=== PATIENT | female | born 1940 | race Caucasian/White ===

== ENCOUNTER 2018-08-12 14:40 | Inpatient (IN) | payer MEDICARE ==
[~2018-08-12] VITALS: Ht 160 cm; Wt 99.8 kg
--- NOTE | 2018-08-12 16:43 | Diagnostic Imaging Report ---
EXAM: CHEST SINGLE (NOT PORTABLE) DATE: 08/12/2018 Time stamp on exam: 2:44 PM INDICATION: Status post fall COMPARISON: None FINDINGS: LINES/TUBES: None LUNGS: No consolidations or edema. PLEURA: No effusions or pneumothorax. HEART AND MEDIASTINUM: Normal size and contour. BONES AND SOFT TISSUES: No acute findings. IMPRESSION: No acute thoracic abnormality. Signed by: Dr. Bernardo Vitale DO on 08/12/2018 4:40 PM
--- NOTE | 2018-08-12 17:07 | Diagnostic Imaging Report ---
Exam: AP pelvis History: Status post fall Comparison: None available Findings: The bones are osteopenic. There is bilateral hip joint space narrowing. Sclerosis of the right femoral head is probably degenerative in nature. No fracture or dislocation is identified. Evidence of prior surgery involving L5 and S1 is present. Impression: No acute bony abnormality. Signed by: Dr. Bernardo Vitale DO on 08/12/2018 5:03 PM
[2018-08-12 17:43] LABS: BASOPHILS % 0.5 % (0.0-1.0); EOSINOPHILS # (AUTO) 0.4 (0.0-0.4); EOSINOPHILS % 6.1 % (0.0-6.0); HEMATOCRIT 34.2 % (34.2-44.1); HEMOGLOBIN 11.1 g/dL (12.0-16.0); LYMPHOCYTES # (AUTO) 1.4 (1.0-3.2); LYMPHOCYTES % 21.5 % (18.0-39.1); MEAN CORPUSCULAR HEMOGLOBIN 31.4 pg (28-32); MEAN CORPUSCULAR HGB CONC 32.5 g/dL (31-35); MEAN CORPUSCULAR VOLUME 96.6 fL (81-99); MONOCYTES # (AUTO) 0.8 (0.2-0.8); MONOCYTES % 11.9 % (4.4-11.3); NEUTROPHILS # (AUTO) 3.8 (2.1-6.9); NEUTROPHILS % 59.7 % (38.7-80.0); PLATELET COUNT 182 x10e3/uL (140-360); RED BLOOD COUNT 3.54 x10e6/uL (3.6-5.1); RED CELL DISTRIBUTION WIDTH 12.1 % (11.7-14.4)
[2018-08-12 17:44] LABS: CALCIUM IONIZED 1.3 mmol/L (1.09-1.30)
[2018-08-12 17:49] LABS: INR 0.99; PROTHROMBIN TIME 13.6 seconds (11.9-14.5)
[2018-08-12 17:50] LABS: PARTIAL THROMBOPLASTIN TIME 26.9 seconds (23.8-35.5)
[2018-08-12 17:55] LABS: BILIRUBIN,URINE NEGATIVE (NEGATIVE); CLARITY,URINE SL CLOUDY (CLEAR); COLOR,URINE YELLOW (YELLOW); KETONES,URINE NEGATIVE (NEGATIVE); LEUKOCYTE ESTERASE ,URINE SMALL (NEGATIVE); NITRITE,URINE NEGATIVE (NEGATIVE); PROTEIN,URINE DIPSTICK TRACE (NEGATIVE); URINE UROBILINOGEN 0.2 mg/dL (0.2 - 1)
[2018-08-12 17:58] LABS: ALANINE AMINOTRANSFERASE 20 IU/L (0-55); ALBUMIN 4.1 g/dL (3.5-5.0); ALBUMIN/GLOBULIN RATIO 1.8 (0.8-2.0); ALKALINE PHOSPHATASE 79 IU/L (40-150); ANION GAP 14.9 mmol/L (8-16); BLOOD UREA NITROGEN 27 mg/dL (7-26); BUN/CREATININE RATIO 19 (6-25); CALCIUM 9.8 mg/dL (8.4-10.2); CARBON DIOXIDE 28 mmol/L (22-29); CHLORIDE 102 mmol/L (98-107); CREATINE KINASE 178 IU/L (29-168); CREATININE, SERUM 1.41 mg/dL (0.57-1.11); EST GLOMERULAR FILTRATION RATE 36 ML/MIN (60-); GLUCOSE 93 mg/dL (74-118); POTASSIUM 3.9 mmol/L (3.5-5.1); SODIUM 141 mmol/L (136-145)
--- NOTE | 2018-08-12 18:01 | Diagnostic Imaging Report ---
History:Patient fell last night out of bed, confused Comparison studies:None Technique: Axial images were obtained from the skull base to the vertex. Coronal and sagittal images reconstructed from the axial data. Intravenous contrast: None Dose modulation, iterative reconstruction, and/or weight based adjustment of the mA/kV was utilized to reduce the radiation dose to as low as reasonably achievable. Findings: Scalp/skull: No abnormalities. Extra-axial spaces: No masses. No fluid collections. Brain sulci: Moderately prominent sylvian fissures and frontal sulci. Ventricles: Mild compensatory dilatation. No hydrocephalus. Parenchyma: Scattered small hypodensities in the supratentorial white matter are small vessel ischemic changes. No masses, hemorrhage, acute or chronic cortical vascular insults. Sellar/suprasellar region: No abnormalities. Craniocervical junction: Patent foramen magnum. No Chiari one malformation. Incidental findings: Atherosclerotic calcifications in the carotid siphons . Impression: No acute intracranial abnormalities. Small left frontal scalp hematoma Chronic findings: 1. Moderate frontal and temporal volume loss. 2. Mild supratentorial white matter small vessel ischemic changes. Signed by: DR Damir Velez M.D. on 08/12/2018 5:58 PM
--- NOTE | 2018-08-12 18:07 | Diagnostic Imaging Report ---
History: Fell last night out of bed, neck pain. Comparison studies: None Technique: Axial images were obtained through the cervical region.. Coronal and sagittal images reconstructed from the axial data.. Intravenous contrast: None Dose modulation, iterative reconstruction, and/or weight based adjustment of the mA/kV was utilized to reduce the radiation dose to as low as reasonably achievable. Findings: Fractures: No acute fracture. Well ossified bone fragment posterior to C7 spinous process. Calcification of the ligamentum nuclei. Soft tissues: No gross abnormalities. Atlantoaxial articulation: No acute abnormality. Degenerative changes. Alignment: Bowel straightening. Mild grade 1 anterolisthesis of C4 over C5, C5 over C6 and C6 over C7. No scoliosis. Cervicomedullary junction: No abnormalities. The foramen magnum is patent. Vertebrae: No infection or neoplasm. Degenerative changes: Obliterated C2-3 and C4-5 intervertebral space. At C3-4, diffuse disc osteophyte complex, bilateral uncinate process hypertrophy and facet hypertrophy resulting in mild canal stenosis and mild bilateral foraminal narrowing more prominent on the left. At C4-5 diffuse disc osteophyte complex, bilateral uncinate process and facet hypertrophy more prominent on the left results in mild canal stenosis, mild right and moderate left foraminal narrowing. At C5-6, bilateral uncinate process and facet hypertrophy result in moderate right and mild left foraminal narrowing without significant canal stenosis.. IMPRESSION: 1. No acute cervical spine abnormalities. Degenerative changes as described above. 2. Cannot exclude ligament, spinal cord and or vascular abnormalities on the basis of this examination. Signed by: DR Damir Velez M.D. on 08/12/2018 6:04 PM
[2018-08-12 18:08] LABS: AMORPHOUS SEDIMENT,URINE MODERATE (FEW); BACTERIA,URINE MODERATE /HPF; RBC,URINE 0-5 /HPF (0-5)
[2018-08-12 18:16] LABS: FREE THYROXINE INDEX 3.8795 (1.4-3.8); THYROID STIMULATING HORMONE 0.084 uIU/mL (0.350-4.940)
[2018-08-12] MEDS: MEROPENEM 1GM 100 ML IV SCH (18:37)
[2018-08-12] MEDS ORDERED: SODIUM CHLORIDE 0.9% 1000ML 1,000 ML IV ONE (18:45)
[2018-08-12] MEDS ORDERED: ONDANSETRON HCL INJ 2MG/ML 2ML 2 MG/ML VIAL IV PRN (18:45)
[2018-08-12] MEDS ORDERED: DEXTROSE 50% SYRINGE 50 ML IV PRN (18:45)
[2018-08-12] MEDS ORDERED: WELLBUTRIN SR150 MG PO (18:55)
[2018-08-12] MEDS ORDERED: CITALOPRAM HBR20 MG PO (18:55)
[2018-08-12] MEDS ORDERED: TUMS300 MG PO (18:55)
[2018-08-12] MEDS ORDERED: PANTOPRAZOLE SO40 MG PO (18:55)
[2018-08-12] MEDS ORDERED: ATORVASTATIN CA20 MG PO (18:55)
[2018-08-12] MEDS ORDERED: LOSARTAN POTASS25 MG PO (18:55)
[2018-08-12] MEDS ORDERED: QUESTRAN PACKET4 GM PO (18:55)
[2018-08-12] MEDS ORDERED: DETROL LA4 MG PO (18:55)
[2018-08-12] MEDS ORDERED: GABAPENTIN300 MG PO (18:55)
[2018-08-12] MEDS ORDERED: NYSTATIN15 GM TP (18:55)
[2018-08-12] MEDS ORDERED: CALCITRIOL0.25 MCG PO (18:55)
[2018-08-12] MEDS ORDERED: LEVOTHYROXINE100 MC1 IV (18:55)
--- OUTSIDE RECORDS SUMMARY | 2018-08-12 18:59 | XMS REPORT ---
[facility] Address Unknown Phone Unavailable Care Team Providers Care Clinical Provider Trainer Name Role Phone Jacky EUCEDA Unavailable Unavailable Problems This patient has no known problems. Allergies, Adverse Reactions, Alerts This patient has no known allergies or adverse reactions. Medications This patient has no known medications. Results Test Description Test Time Test Comments Text Results Atomic Results Result Comments CT CERVICAL SPINE WO 2018-08-12 17:58:00 [place] [address] Patient Name: HUNTER BACK MR #: [id number] : 1940 Age/Sex: 78/F Req #: [id number] Adm Physician: Ordered by: AALIYAH EUCEDA MD Report #: [id number] Location: ER Room/Bed: Procedure: [id number] CT/CT CERVICAL SPINE WO Exam Date: 08/12/18 Exam Time: 1540 REPORT STATUS: Signed History: Fell last night out of bed, neck pain. Com parison studies: None Technique: Axial images were obtained through the cervical region.. Coronal and sagittal images reconstructed from the axial data.. Intravenous contrast: None Dose modulation, iterative reconstruction, and/or weight based adjustment of the mA/kV was utilized to reduce the radiation dose to as low as reasonably achievable. Findings: Fractures: No acute fracture. Well ossified bone fragment posterior to C7 spinous process. Calcification of the ligamentum nuclei. Soft tissues: No gross abnormalities. Atlantoaxial articulation: No acute abnormality. Degenerative changes. Alignment: Bowel straightening. Mild grade 1 anterolisthesis of C4 over C5, C5 over C6 and C6 over C7. No scoliosis. Cervicomedullary junction: No abnormalities. The foramen magnum is patent. Vertebrae: No infection or neoplasm. Degenerative changes: Obliterated C2-3 and C4-5 intervertebral space. At C3-4, diffuse disc osteophyte complex, bilateral uncinate process hypertrophy and facet hypertrophy resulting in mild canal stenosis and mild bilateral foraminal narrowing more prominent on the left. At C4-5 diffuse disc osteophyte complex, bilateral uncinate process and facet hypertrophy more prominent on the left results in mild canal stenosis, mild right and moderate left foraminal narrowing. At C5-6, bilateral uncinate process and facet hypertrophy result in moderate right and mild left foraminal narrowing without significant canal stenosis.. IMPRESSION: 1. No acute cervical spine abnormalities. Degenerative changes as described above. 2. Cannot exclude ligament, spinal cord and or vascular abnormalities on the basis of this examination. Signed by: DR Damir Velez M.D. on 08/12/2018 6:04 PM Dictated By: DAMIR PICKETT MD 03 Transcribed By: LUCIO on 08/12/181803 COPY TO: AALIYAH EUCEDA MD CT BRAIN WO 2018-08-12 17:53:00 [place] [address] Patient Name: HUNTER BACK MR #: [id number] : 1940 Age/Sex: 78/F Req #: [id number] Adm Physician: Ordered by: AALIYAH EUCEDA MD Report #: [id number] Location: Room/Bed: Procedure: [id number] CT/CT BRAIN WO Exam Date: 08/12/18 Exam Time: 1540 REPORT STATUS: Signed History:Patient fell last night out of bed, confused Compari son studies:None Technique: Axial images were obtained from the skull base to the vertex. Coronal and sagittal images reconstructed from the axial data. Intravenous contrast: None Dose modulation, iterative reconstruction, and/or weight based adjustment of the mA/kV was utilized to reduce the radiation dose to as low as reasonably achievable. Findings: Scalp/skull: No abnormalities. Extra-axial spaces: No masses. No fluid collections. Brain sulci: Moderately prominent sylvian fissures and frontal sulci. Ventricles: Mild compensatory dilatation. No hydrocephalus. Parenchyma: Scattered small hypodensities in the supratentorial white matter are small vessel ischemic changes. No masses, hemorrhage, acute or chronic cortical vascular insults. Sellar/suprasellar region: No abnormalities. Craniocervical junction: Patent foramen magnum. No Chiari one malformation. Incidental findings: Atherosclerotic calcifications in the carotid siphons . Impression: No acute intracranial abnormalities. Small left frontal scalp hematoma Chronic findings: 1. Moderate frontal and temporal volume loss. 2. Mild supratentorial white matter small vessel ischemic changes. Signed by: DR Damir Velez M.D. on 08/12/2018 5:58 PM Dictated By: DAMIR PICKETT MD 57 Transcribed By: LUCIO on 08/12/181757 COPY TO: AALIYAH EUCEDA MD PELVIS AP 1-2 VIEWS 2018-08-12 17:02:00 [place] [address] Patient Name: HUNTER BACK MR #: [id number] : 1940 Age/Sex: 78/F Req #: [id number] Adm Physician: Ordered by: AALIYAH EUCEDA MD Report #: [id number] Location: ER Room/Bed: Procedure: [id number] DX/PELVIS AP 1-2 VIEWS Exam Date: 08/12/18 Exam Time: 1550 REPORT STATUS: Signed Exam: AP pelvis History: Status post fall Co mparison: None available Findings: The bones are osteopenic. There is bilateral hip joint space narrowing. Sclerosis of the right femoral head is probably degenerative in nature. No fracture or dislocation is identified. Evidence of prior surgery involving L5 and S1 is present. Impression: No acute bony abnormality. Signed by: Dr. Denise Vitale DO on 08/12/2018 5:03 PM Dictated By: DENISE VITALE DO 02 Transcribed By: LUCIO on 08/12/181702 COPY TO: AALIYAH EUCEDA MD CHEST SINGLE (NOT PORTABLE) 2018-08-12 16:38:00 [place] [address] Patient Name: HUNTER ESCOBEDO MR #: [id number] : 1940 Age/Sex: 78/F Req #: [id number] Adm Physician: Ordered by: AALIYAH EUCEDA MD Report #: [id number] Location: ER Room/Bed: Procedure: [id number] DX/CHEST SINGLE (NOT PORTABLE) Exam Date: 08/12/18 Exam Time: 1550 REPORT STATUS: Signed EXAM: CHEST SINGLE (NOT PORTABLE) DATE: 08/12/2018 Time stamp on exam: 2:44 PM INDICATION: Status post fall COMPARISON: None FINDINGS: LINES/TUBES: None LUNGS: No consolidations or edema. PLEURA: No effusions or pneumothorax. HEART AND MEDIASTINUM: Normal size and contour. BONES AND SOFT TISSUES: No acute findings. IMPRESSION: No acute thoracic abnormality. Signed by: Dr. Denise Vitale DO on 08/12/2018 4:40 PM Dictated By: DENISE VITALE DO 1640 Transcribed By: LUCIO on 08/12/18 1640 COPY TO: AALIYAH EUCEDA MD
[2018-08-12 20:01] VITALS: BP 130/61
--- NOTE | 2018-08-12 20:01 | NUR ---
Received patient from Emergency Room via Stretcher accompanied by staff and family member. Patient is oriented to places, persons and situation. left aka noted. Patient has scab and redness to right lower leg. No complain of pain. Call light within reach.
[2018-08-12] MEDS: INSULIN LISPRO 100 UNIT/1 ML 3ML VIAL SQ SCH (21:00)
[2018-08-12 22:54] VITALS: BP 130/61
[2018-08-12 23:11] VITALS: BP 130/61
[2018-08-13] VITALS (7 sets, daily range): BP systolic 106–144; BP diastolic 53–73
[2018-08-13 01:22] LABS: CREATINE KINASE 134 IU/L (29-168)
[2018-08-13] MEDS: MEROPENEM 1GM 100 ML IV SCH ×2 (05:56→17:11)
[2018-08-13] MEDS ORDERED: SODIUM CHLORIDE 0.9% 250ML 250 ML ONE (06:01)
[2018-08-13 06:08] LABS: BASOPHILS % 0.6 % (0.0-1.0); EOSINOPHILS # (AUTO) 0.3 (0.0-0.4); EOSINOPHILS % 5.6 % (0.0-6.0); HEMATOCRIT 31.5 % (34.2-44.1); HEMOGLOBIN 10.5 g/dL (12.0-16.0); LYMPHOCYTES # (AUTO) 1.2 (1.0-3.2); LYMPHOCYTES % 24.1 % (18.0-39.1); MEAN CORPUSCULAR HGB CONC 33.3 g/dL (31-35); MONOCYTES # (AUTO) 0.6 (0.2-0.8); MONOCYTES % 11.6 % (4.4-11.3); NEUTROPHILS # (AUTO) 2.8 (2.1-6.9); NEUTROPHILS % 57.7 % (38.7-80.0); PLATELET COUNT 134 x10e3/uL (140-360); RED BLOOD COUNT 3.28 x10e6/uL (3.6-5.1)
[2018-08-13 06:39] LABS: CREATINE KINASE 116 IU/L (29-168)
[2018-08-13 06:49] LABS: ALBUMIN 3.4 g/dL (3.5-5.0); ALBUMIN/GLOBULIN RATIO 1.4 (0.8-2.0); ANION GAP 14.7 mmol/L (8-16); CALCIUM 9.4 mg/dL (8.4-10.2); CREATININE, SERUM 1.39 mg/dL (0.57-1.11); POTASSIUM 3.7 mmol/L (3.5-5.1)
--- NOTE | 2018-08-13 07:00 | NUR ---
bedside shift report received from night rn, pt in stable condition, no distress noted, r ac 20g no ss of infiltration noted, denies pain at this time, call light in reach will continue ot monitor
[2018-08-13] MEDS: INSULIN LISPRO 100 UNIT/1 ML 3ML VIAL SQ SCH ×4 (07:30→22:06)
[2018-08-13 14:04] LABS: CREATINE KINASE MB 2.4 ng/mL (0-5.0)
[2018-08-13] MEDS: GABAPENTIN 300 MG CAP PO SCH (16:35)
[2018-08-13] MEDS: TOLTERODINE TARTRATE 2 MG CAPCR PO SCH (16:35)
[2018-08-13] MEDS: CHOLESTYRAMINE 4 GM PACKET PO SCH (16:35)
--- NOTE | 2018-08-13 19:00 | NUR ---
1900: Received patient from day nurse, patient is alert and oriented, safety and fall precaution maintained as per hospital protocol: bed in lowest position and locked, needed items beside patient, yellow socks on patient, patient is currently stable will continue to monitor.
[2018-08-13] MEDS: NYSTATIN 100,000 UNITS/GM CRM 30GM TUBE TOP SCH (21:34)
[2018-08-13] MEDS: ATORVASTATIN 20 MG TAB PO SCH (21:34)
[2018-08-14] VITALS (7 sets, daily range): BP systolic 133–168; BP diastolic 69–76
[2018-08-14] MEDS: LEVOTHYROXINE SODIUM 100 MCG TAB PO SCH (06:10)
[2018-08-14] MEDS: MEROPENEM 1GM 100 ML IV SCH ×2 (06:10→18:17)
--- NOTE | 2018-08-14 07:00 | NUR ---
BEDSIDE SHIFT REPORT RECEIVED FROM NIGHT RN, NO DISTRESS NOTED, DENIES PAIN AT TIME, R AC 20G NO SS OF INFILTRATION NOTED, L AKA NOTED, NO OTHER CO VOICED CALL LIGHT IN REACH WILL CONTINUE OT MONITOR
[2018-08-14] MEDS: INSULIN LISPRO 100 UNIT/1 ML 3ML VIAL SQ SCH ×4 (07:30→20:48)
[2018-08-14] MEDS: PANTOPRAZOLE SOD 40 MG TABEC PO SCH (08:10)
[2018-08-14] MEDS: NYSTATIN 100,000 UNITS/GM CRM 30GM TUBE TOP SCH ×2 (08:12→20:47)
[2018-08-14] MEDS: BUPROPION HCL SR 150 MG TAB PO SCH (08:12)
[2018-08-14] MEDS: CHOLESTYRAMINE 4 GM PACKET PO SCH ×2 (08:12→18:17)
[2018-08-14] MEDS: GABAPENTIN 300 MG CAP PO SCH ×2 (08:12→18:17)
[2018-08-14] MEDS: TOLTERODINE TARTRATE 2 MG CAPCR PO SCH ×2 (08:12→18:16)
[2018-08-14] MEDS: LOSARTAN POTASSIUM 25 MG TAB PO SCH (08:12)
[2018-08-14] MEDS: CALCITRIOL 0.25 MCG CAP PO SCH (08:12)
[2018-08-14] MEDS ORDERED: CITALOPRAM HYDROBROMIDE 20 MG TAB PO SCH ×2 (09:00→21:00)
[2018-08-14] MEDS ORDERED: CALCITRIOL 0.25 MCG CAP PO SCH (09:00)
[2018-08-14] MEDS ORDERED: LEVOTHYROXINE SODIUM 100 MCG/VIAL IV SCH (09:00)
[2018-08-14] MEDS ORDERED: ONDANSETRON HCL 4 MG ORAL DISINTEGRATING TAB PO PRN (16:30)
--- NOTE | 2018-08-14 18:56 | NUR ---
Received report from previous nurse. call light within reach. patient in bed.
[2018-08-14] MEDS: ATORVASTATIN 20 MG TAB PO SCH (20:46)
[2018-08-15] VITALS: BP 176/88
[2018-08-15 01:00] VITALS: BP 176/88
[2018-08-15 04:00] VITALS: BP 173/84
[2018-08-15 06:00] LABS: BASOPHILS % 0.6 % (0.0-1.0); EOSINOPHILS # (AUTO) 0.3 (0.0-0.4); EOSINOPHILS % 6.3 % (0.0-6.0); HEMATOCRIT 33.2 % (34.2-44.1); LYMPHOCYTES # (AUTO) 1.3 (1.0-3.2); MEAN CORPUSCULAR HEMOGLOBIN 31.5 pg (28-32); MEAN CORPUSCULAR HGB CONC 33.1 g/dL (31-35); MEAN CORPUSCULAR VOLUME 95.1 fL (81-99); MONOCYTES # (AUTO) 0.5 (0.2-0.8); MONOCYTES % 9.9 % (4.4-11.3); NEUTROPHILS # (AUTO) 3.1 (2.1-6.9); NEUTROPHILS % 58.8 % (38.7-80.0); PLATELET COUNT 151 x10e3/uL (140-360); RED BLOOD COUNT 3.49 x10e6/uL (3.6-5.1)
[2018-08-15 06:15] LABS: ANION GAP 13.9 mmol/L (8-16); CALCIUM 9.3 mg/dL (8.4-10.2); CREATININE, SERUM 1.2 mg/dL (0.57-1.11); POTASSIUM 3.9 mmol/L (3.5-5.1)
[2018-08-15] MEDS: LEVOTHYROXINE SODIUM 100 MCG TAB PO SCH (06:39)
[2018-08-15] MEDS: MEROPENEM 1GM 100 ML IV SCH (06:39)
--- NOTE | 2018-08-15 07:00 | NUR ---
received am report from rn. pt is sleeping in bed, no s/s of distress. call light within reach, bed in lowest position, side rails up.
--- NOTE | 2018-08-15 07:04 | NUR ---
Gave report to oncoming nurse. Call light within reach. patient in bed.
[2018-08-15] MEDS: INSULIN LISPRO 100 UNIT/1 ML 3ML VIAL SQ SCH ×2 (07:30→11:30)
[2018-08-15 07:32] VITALS: BP 146/69
[2018-08-15] MEDS: PANTOPRAZOLE SOD 40 MG TABEC PO SCH (08:47)
[2018-08-15 08:48] VITALS: BP 146/69
[2018-08-15] MEDS: GABAPENTIN 300 MG CAP PO SCH (08:48)
[2018-08-15] MEDS: LOSARTAN POTASSIUM 25 MG TAB PO SCH (08:48)
[2018-08-15] MEDS: TOLTERODINE TARTRATE 2 MG CAPCR PO SCH (08:48)
[2018-08-15] MEDS: CALCITRIOL 0.25 MCG CAP PO SCH (08:48)
[2018-08-15] MEDS: BUPROPION HCL SR 150 MG TAB PO SCH (08:49)
[2018-08-15] MEDS: NYSTATIN 100,000 UNITS/GM CRM 30GM TUBE TOP SCH (08:54)
[2018-08-15] MEDS: CHOLESTYRAMINE 4 GM PACKET PO SCH (10:04)
[2018-08-15 12:02] VITALS: BP 144/82
--- NOTE | 2018-08-15 16:02 | NUR ---
pt is waiting for daughter to arrive in order to discharge home. pt requests that discharge paperwork be discussed when the daughter is present.
--- NOTE | 2018-09-22 18:24 | Discharge Summary ---
CHIEF COMPLAINT: Progressive weakness, confusion, disorientation. FINAL DIAGNOSES: 1. Urinary tract infection, resolved. 2. Hypertension. 3. History of left [id number] amputation. DISPOSITION: Home. HOSPITAL COURSE: An 78-year-old female with known history of hypertension, diabetes type 2, hypothyroidism, anemia of chronic disease, brought to the ER with 3-day history of progressive weakness, confusion, and disorientation. The patient was unable to recognize her family members and was becoming extremely weak, unable to ambulate. There was no evidence of loss of consciousness. No other issues other than the patient is noted to have confusion with some altered mental status developments, underwent evaluation and review in the ER and following the workup, the patient was noted to be confused and disoriented x3. Admission was made to review altered mental status, sepsis/UTI, hypothyroidism, and hypertension, will be undergoing urine and blood cultures. We will begin the IV antibiotics. Home medications will be continuing as well. From the ER, the patient was placed on the Med-Surg floor, was on ADA diet, resting comfortably, was in no acute distress. She was beginning to respond well to her care. She had been on meropenem as well as routine daily medications along with her routine insulin protocols. She was beginning to feel better overall. Lab studies were being monitored further. She was continued on her antibiotics. Her other medications were continued appropriately. Waiting on culture reports. She was becoming more alert and responsive as her days continue. Her urine studies were returning back with evidence of enterococcus, waiting for the sensitivity to return. Her altered mental status was resolving. Lab studies continued to be reviewed and followed. On the date of discharge, she was noted to be much better, alert and oriented x3, and she was well enough to be discharged and be followed up further on an outpatient basis with further medications. The patient was able to be released on 08/15/2018 in stable condition. IMAGING: Chest shows no acute thoracic abnormality. Pelvis, no acute bony abnormality. Cervical spine CT was performed due to the fact that she fell last night out of bed and was complaining of neck pain, results show no acute cervical spine abnormalities, degenerative changes as described, cannot exclude ligaments, spinal cord, or vascular abnormalities on the basis of this examination. Brain CT finding shows no acute intracranial abnormalities, small left frontal scalp hematoma, there were chronic findings of moderate frontal and temporal volume loss, mild supratentorial white matter small vessel ischemic changes. Culture study shows the blood cultures to be negative. Urine studies were coming back with Enterococcus faecalis. Further laboratory studies show a CBC revealing normal white count, hemoglobin was low at 11.1, and platelets were normal. Followup CBCs continued to have normal white count, H and H fell slightly to 10.5 and 31.5. Final studies are 11.0 and 33.2. Urinalysis; trace protein, 11-20 wbc's by high-power field, moderate amount of bacteria. Chemistry studies reveal initial panel of electrolytes to be normal. Initial kidney functions, BUN 27 and creatinine 1.41. TSH was noted to be low at 0.084. Glucose levels were normal. Three sets of cardiac enzymes returned normal. Followup BUN 24 and creatinine was 1.39. Followup glucose 102. She responded quite well to care, cleared for discharge, scheduled to be released home and she was escorted to the front lobby, picked up by family members and she left on 08/15/2018 in good condition. With discharge, she will continue on her diabetic diet. No equipments or supplies necessary. No drains or [place] needed. Activity level as directed by me. Followup care, she will be reporting back to my office within 2-3 weeks. She will be continuing on atorvastatin calcium 20 mg p.o. at bedtime, Wellbutrin 150 mg p.o. daily, calcitriol 0.25 mg p.o. daily, calcium carbonate chewable tablets 750 mg daily, Questran packet 4 g p.o. b.i.d., citalopram 40 mg p.o. daily, gabapentin 300 mg p.o. b.i.d., levothyroxine sodium 200 mcg IV daily, losartan potassium 25 mg p.o. daily, nystatin 15 g cream one drop topically daily, Protonix 40 mg p.o. daily, and Detrol LA 2 mg p.o. b.i.d. If the patient develops any similar symptoms, family members were told to bring the patient back to the ER for further review and evaluation. Dictated by LORRAINE Jacob Giuseppe Gutierrez MD CC/MODL /[id number]
== END 2018-08-15 16:30 | disposition home or self-care (01) | DRG 872 ==
LOC: ER 14:40 → ERHOLD 18:41 → INTOOBSV 18:41 → MED/SURG 20:06 → OBSVTOIN 08-14 08:57
DX: A41.9 Sepsis, unspecified organism (principal); N39.0 Urinary tract infection, site not specified; I12.9 Hypertensive chronic kidney disease with stage 1 through stage 4 chronic kidney disease, or unspecified chronic kidney disease; E11.9 Type 2 diabetes mellitus without complications; D63.8 Anemia in other chronic diseases classified elsewhere; Z89.612 Acquired absence of left leg above knee; N18.3 Chronic kidney disease, stage 3 (moderate)
CPT/HCPCS: 36415; 70450; 71045; 72125; 72170; 80048; 80053; 81001; 82330; 82550; 82553; 82948; 83605; 83735; 83880; 84436; 84443; 84479; 84484; 85025; 85610; 85730; 87040; 87086; 87186; 93005; 99284; G0378; J7030; J7050